=== PATIENT | female | born 1970 | race Caucasian/White ===

== ENCOUNTER 2017-06-25 20:21 | Inpatient (IN) | payer BC ==
[2017-06-25 21:25] LABS: Basophils % (A) 0 %; Eosinophils # (A) 0.1 k/uL (0-0.7); Eosinophils % (A) 1 %; HGB 15.7 gm/dL (11.4-16.0); Lymphocytes # (A) 1.1 k/uL (1.0-4.8); Lymphocytes % (A) 11 %; MCH 33.8 pg (25.0-35.0); MCHC 34.8 g/dL (31.0-37.0); MCV 97.1 fL (80.0-100.0); Mean Platelet Volume 7.1; Monocytes # (A) 0.4 k/uL (0-1.0); Monocytes % (A) 4 %; Neutrophils # (A) 8.4 k/uL (1.3-7.7); Neutrophils % (A) 83 %; Platelet Count 259 k/uL (150-450); RBC 4.63 m/uL (3.80-5.40); RDW 13.2 % (11.5-15.5); WBC 10.1 k/uL (3.8-10.6)
[2017-06-25 21:52] LABS: ALT 121 U/L (9-52); AST 72 U/L (14-36); Albumin 4.5 g/dL (3.5-5.0); Alkaline Phosphatase 88 U/L (38-126); Amylase 52 U/L (30-110); Anion Gap 17 mmol/L; Blood Urea Nitrogen 12 mg/dL (7-17); Carbon Dioxide 21 mmol/L (22-30); Chloride 100 mmol/L (98-107); Glucose 93 mg/dL (74-99); Lipase 83 U/L (23-300); Potassium 3.6 mmol/L (3.5-5.1); Sodium 138 mmol/L (137-145); Total Bilirubin 0.7 mg/dL (0.2-1.3); Total Protein 7.3 g/dL (6.3-8.2)
[2017-06-25] MEDS ORDERED: SODIUM CHLORIDE 0.9% 1,000 ML IV ONE (22:03)
[2017-06-25] MEDS ORDERED: ONDANSETRON 4 MG/2 ML VIAL IVP STA (22:03)
[2017-06-25] MEDS ORDERED: KETOROLAC 30 MG/ML 1 ML VIAL IVP STA (22:03)
--- NOTE | 2017-06-25 22:06 | ED ---
Abdominal Pain HPI <Ezra Linton - Last Filed: 06/26/17 01:46> - General Source: patient, RN notes reviewed Mode of arrival: wheelchair Limitations: no limitations <Clif Alas - Last Filed: 06/26/17 01:51> - General Chief Complaint: Abdominal Pain Stated Complaint: poss gallbladder problem Time Seen by Provider: 06/25/17 21:45 - History of Present Illness Initial Comments: This a 47-year-old female presents emergency Department chief complaint of right upper quadrant abdominal pain. Patient states symptoms started around 4 this afternoon. Patient states she's been vomiting cannot keep anything down. Denies any diarrhea, constipation. Patient denies any dysuria, hematuria or any chance . Patient had no prior abdominal surgeries other concerns section. Patient denies any known fever, chills. She states that she has color dysfunction has not had a recent ultrasound. Denies chest pain, shortness breath, headache, dizziness. (Clif Alas) - Related Data Home Medications Medication Instructions Recorded Confirmed Triamcinolone Acetonide [Nasacort 16.5 gm NASAL DAILY 10/24/13 10/24/13 Aq] Allergies Allergy/AdvReac Type Severity Reaction Status Date / Time codeine Allergy Unknown Verified 06/25/17 20:29 Review of Systems ROS Other: All systems not noted in ROS Statement are negative. <Ezra Linton - Last Filed: 06/26/17 01:46> ROS Other: All systems not noted in ROS Statement are negative. <Clif Alas - Last Filed: 06/26/17 01:51> ROS Statement: Those systems with pertinent positive or pertinent negative responses have been documented in the HPI. Past Medical History Additional Past Medical History / Comment(s): seasonal allergies History of Any Multi-Drug Resistant Organisms: None Reported Past Surgical History: No Surgical Hx Reported Additional Past Surgical History / Comment(s): 1994. Past Anesthesia/Blood Transfusion Reactions: No Reported Reaction Past Psychological History: No Psychological Hx Reported Smoking Status: Current every day smoker Past Alcohol Use History: Occasional Past Drug Use History: None Reported - Past Family History Father Family Medical History: Diabetes Mellitus, Hypertension Additional Family Medical History / Comment(s): father had 5 stents in May,. Mother Family Medical History: Diabetes Mellitus, Hypertension <Clif Alas - Last Filed: 06/26/17 01:51> General Exam Limitations: no limitations General appearance: alert, in no apparent distress Head exam: Present: atraumatic, normocephalic, normal inspection Eye exam: Present: normal appearance, PERRL, EOMI. Absent: scleral icterus, conjunctival injection, periorbital swelling ENT exam: Present: normal exam, normal oropharynx, mucous membranes moist Neck exam: Present: normal inspection. Absent: tenderness, meningismus, lymphadenopathy Respiratory exam: Present: normal lung sounds bilaterally. Absent: respiratory distress, wheezes, rales, rhonchi, stridor Cardiovascular Exam: Present: regular rate, normal rhythm, normal heart sounds. Absent: systolic murmur, diastolic murmur, rubs, gallop, clicks GI/Abdominal exam: Present: soft, tenderness (Moderate right upper quadrant tenderness), normal bowel sounds. Absent: distended, guarding, rebound, rigid Back exam: Absent: CVA tenderness (R), CVA tenderness (L) Skin exam: Present: warm, dry, intact, normal color. Absent: rash <Clif Alas - Last Filed: 06/26/17 01:51> Vital Signs 06/25/17 06/26/17 20:26 00:54 Temperature 98.5 F Pulse Rate 73 99 Respiratory 20 18 Rate Blood Pressure 187/95 157/82 O2 Sat by Pulse 100 100 Oximetry Medical Decision Making - Lab Data Result diagrams: 06/25/17 21:00 06/25/17 21:00 <Ezra Linton - Last Filed: 06/26/17 01:46> - Lab Data Result diagrams: 06/25/17 21:00 06/25/17 21:00 <Clif Alas - Last Filed: 06/26/17 01:51> - Medical Decision Making Patient reevaluated by myself, Dr. Linton. Patient has mild discomfort at this time. There is mild tenderness right upper quadrant. Labs and ultrasound report reviewed. Patient updated on results and plan. Case was also discussed in detail with Dr. Joseph, who will admit for surgical call. (Ezra Linton) Patient be admitted for acute cholecystitis. Patient was hydrated given broad- spectrum antibiotics at this time. (Clif Alas) - Lab Data Lab Results 04/10/18 04/10/18 04/10/18 Range/Units 21:00 21:00 21:00 WBC 10.1 (3.8-10.6) k/uL RBC 4.63 (3.80-5.40) m/uL Hgb 15.7 (11.4-16.0) gm/dL Hct 45.0 (34.0-46.0) % MCV 97.1 (80.0-100.0) fL MCH 33.8 (25.0-35.0) pg MCHC 34.8 (31.0-37.0) g/dL RDW 13.2 (11.5-15.5) % Plt Count 259 (150-450) k/uL Neutrophils % 83 % Lymphocytes % 11 % Monocytes % 4 % Eosinophils % 1 % Basophils % 0 % Neutrophils # 8.4 H (1.3-7.7) k/uL Lymphocytes # 1.1 (1.0-4.8) k/uL Monocytes # 0.4 (0-1.0) k/uL Eosinophils # 0.1 (0-0.7) k/uL Basophils # 0.0 (0-0.2) k/uL Sodium 138 (137-145) mmol/L Potassium 3.6 (3.5-5.1) mmol/L Chloride 100 (98-107) mmol/L Carbon Dioxide 21 L (22-30) mmol/L Anion Gap 17 mmol/L BUN 12 (7-17) mg/dL Creatinine 0.60 (0.52-1.04) mg/dL Est GFR (CKD-EPI)AfAm >90 (>60 ml/min/1.73 sqM) Est GFR (CKD-EPI)NonAf >90 (>60 ml/min/1.73 sqM) Glucose 93 (74-99) mg/dL Plasma Lactic Acid Loco 1.7 (0.7-2.0) mmol/L Calcium 10.0 (8.4-10.2) mg/dL Total Bilirubin 0.7 (0.2-1.3) mg/dL AST 72 H (14-36) U/L ALT 121 H (9-52) U/L Alkaline Phosphatase 88 (38-126) U/L Total Protein 7.3 (6.3-8.2) g/dL Albumin 4.5 (3.5-5.0) g/dL Amylase 52 (30-110) U/L Lipase 83 (23-300) U/L Urine Color Urine Appearance (Clear) Urine pH (5.0-8.0) Ur Specific [place] (1.001-1.035) Urine Protein (Negative) Urine Glucose (UA) (Negative) Urine Ketones (Negative) Urine Blood (Negative) Urine Nitrite (Negative) Urine Bilirubin (Negative) Urine Urobilinogen (<2.0) mg/dL Ur Leukocyte Esterase (Negative) Urine RBC (0-5) /hpf Urine WBC (0-5) /hpf Ur Squamous Epith Cells (0-4) /hpf Urine Mucus (None) /hpf Urine HCG, Qual (Not Detectd) 06/25/17 06/25/17 Range/Units 23:35 23:35 WBC (3.8-10.6) k/uL RBC (3.80-5.40) m/uL Hgb (11.4-16.0) gm/dL Hct (34.0-46.0) % MCV (80.0-100.0) fL MCH (25.0-35.0) pg MCHC (31.0-37.0) g/dL RDW (11.5-15.5) % Plt Count (150-450) k/uL Neutrophils % % Lymphocytes % % Monocytes % % Eosinophils % % Basophils % % Neutrophils # (1.3-7.7) k/uL Lymphocytes # (1.0-4.8) k/uL Monocytes # (0-1.0) k/uL Eosinophils # (0-0.7) k/uL Basophils # (0-0.2) k/uL Sodium (137-145) mmol/L Potassium (3.5-5.1) mmol/L Chloride (98-107) mmol/L Carbon Dioxide (22-30) mmol/L Anion Gap mmol/L BUN (7-17) mg/dL Creatinine (0.52-1.04) mg/dL Est GFR (CKD-EPI)AfAm (>60 ml/min/1.73 sqM) Est GFR (CKD-EPI)NonAf (>60 ml/min/1.73 sqM) Glucose (74-99) mg/dL Plasma Lactic Acid Loco (0.7-2.0) mmol/L Calcium (8.4-10.2) mg/dL Total Bilirubin (0.2-1.3) mg/dL AST (14-36) U/L ALT (9-52) U/L Alkaline Phosphatase (38-126) U/L Total Protein (6.3-8.2) g/dL Albumin (3.5-5.0) g/dL Amylase (30-110) U/L Lipase (23-300) U/L Urine Color Yellow Urine Appearance Clear (Clear) Urine pH 5.5 (5.0-8.0) Ur Specific [place] 1.024 (1.001-1.035) Urine Protein 1+ H (Negative) Urine Glucose (UA) Negative (Negative) Urine Ketones 4+ H (Negative) Urine Blood Negative (Negative) Urine Nitrite Negative (Negative) Urine Bilirubin Negative (Negative) Urine Urobilinogen <2.0 (<2.0) mg/dL Ur Leukocyte Esterase Negative (Negative) Urine RBC 2 (0-5) /hpf Urine WBC 1 (0-5) /hpf Ur Squamous Epith Cells 2 (0-4) /hpf Urine Mucus Rare H (None) /hpf Urine HCG, Qual Not Detected (Not Detectd) Disposition <Ezra Linton - Last Filed: 06/26/17 01:46> <Clif Alas - Last Filed: 06/26/17 01:51> Clinical Impression: Acute cholecystitis Disposition: ADMITTED IP TO THIS HOSP Condition: Stable Referrals: Jose Bangura MD [Primary Care Provider] - 1-2 days
--- NOTE | 2017-06-25 22:13 | XR ---
EXAMINATION TYPE: XR KUB DATE OF EXAM: 06/25/2017 COMPARISON: NONE HISTORY: Epigastric pain TECHNIQUE: 2 views FINDINGS: There is no sign of intestinal obstruction or pneumoperitoneum. Fecal pattern is normal. Loree ng bases are clear. There are no pathologic calcifications over the kidneys. There is some amorphous calcification in the right paraspinal region at the L3-L4 level the could relate to degenerative phen omenon in the spine. IMPRESSION: Nonacute abdomen.
--- NOTE | 2017-06-25 23:10 | US ---
EXAMINATION TYPE: US abdomen limited DATE OF EXAM: 06/25/2017 COMPARISON: NONE CLINICAL HISTORY: Pain. RUQ pain nausea and vomiting. EXAM MEASUREMENTS: Liver Length: 15.6 cm Gallbladder Wall: 0.5 cm CBD: 0.6 cm Right Kidney: 9.7 x 4.3 x 3.9 cm Pancreas: Obscured by bowel gas Liver: wnl Gallbladder: Multiple gallstones visualized with wall thickening. Evidence for sonographic Hyatt's sign: Yes CBD: upper limits Right Kidney: No hydronephrosis or masses seen. Appears to have a dual collecting system. Multiple gallstones seen with wall thickening. IMPRESSION: Gallstones and gallbladder wall thickening suggestive of acute and chronic cholecystitis. No dilated ducts.
[2017-06-25 23:42] LABS: Appearance,Urine Clear (Clear); Bilirubin,Urine Negative (Negative); Blood,Urine Negative (Negative); Color,Urine Yellow; Glucose,Urine (UA) Negative (Negative); Ketones,Urine 4+ (Negative); Leukocyte Esterase,Urine Negative (Negative); Mucus,Urine Rare /hpf; Nitrite,Urine Negative (Negative); PH, Urine 5.5 (5.0-8.0); Protein,Urine 1+ (Negative); RBC,Urine 2 /hpf (0-5); Specific Gravity,Urine 1.024 (1.001-1.035); Squamous Epithelial Cell,Urine 2 /hpf (0-4); Urobilinogen,Urine <2.0 mg/dL (<2.0); WBC,Urine 1 /hpf (0-5)
[2017-06-26] MEDS ORDERED: METOCLOPRAMIDE 5 MG/ML 2 ML VIAL IVP STA (00:08)
[2017-06-26] MEDS ORDERED: PIPERACILLIN-TAZOBACTAM 3.375 GM in DEXTROSE/WATER 1 50ML.BAG IVPB STA (00:38)
[2017-06-26] MEDS ORDERED: SODIUM CHLORIDE 0.9% 1,000 ML IV ONE (01:50)
[2017-06-26] MEDS ORDERED: HYDROcodone/APAP 5-325MG 1 EACH TAB PO PRN ×2 (01:51→17:57)
[2017-06-26] MEDS ORDERED: ONDANSETRON 4 MG/2 ML VIAL IVP PRN (01:51)
[2017-06-26] MEDS ORDERED: MEPERIDINE 50 MG/ML SYRINGE IVP PRN (01:59)
[2017-06-26] MEDS: SODIUM CHLORIDE 0.9% 1,000 ML IV SCH ×2 (02:15→08:30)
[2017-06-26 05:03] VITALS: BMI 28.1
[2017-06-26] MEDS ORDERED: MORPHINE SULFATE 4MG/4ML SYRG IVP PRN ×2 (07:57→17:59)
[2017-06-26] MEDS: MORPHINE SULFATE 4MG/4ML SYRG IVP PRN ×3 (10:52→21:30)
[2017-06-26] MEDS: PIPERACILLIN-TAZOBACTAM 3.375 GM in DEXTROSE/WATER 1 50ML.BAG IVPB SCH ×2 (10:53→15:34)
[2017-06-26] MEDS: ONDANSETRON 4 MG/2 ML VIAL IVP PRN ×2 (10:53→14:48)
--- NOTE | 2017-06-26 10:59 | P.GSHP ---
History of Present Illness H&P Date: 06/26/17 47-year-old female presented to the emergency room with a chief complaint of developing a sudden onset of right upper quadrant abdominal pain. Reported that it started around 3:00 in the afternoon felt a nausea sensation started vomiting could not keep anything down. Patient stated the pain continued to persist came into the emergency room to be evaluated. Patient reports that she has had 2 prior episodes that were similar but they resolved on their own. Patient reports being on a diet low carbohydrate and fat for greater than a year for weight loss. Patient has no prior recent abdominal surgeries. C- section in 1994. No significant past medical history. Current every day smoker. Positive family history of gallbladder disease mother father. Ultrasound of the abdomen to evaluate right upper quadrant pain showed multiple gallstones with wall thickening. Suggesting acute on chronic cholecystitis no dilated ducts. Labs were reviewed total bili 0.7, AST 72 ALT 121 white count 10.1 electrolytes reviewed within normal limits temp this morning is 100.7 heart rate in the 100s patient continues to report having right upper quadrant pain with a nausea sensation - Review of Systems Comment: Essentially unremarkable except as mentioned in the present illness Past Medical History Additional Past Medical History / Comment(s): seasonal allergies History of Any Multi-Drug Resistant Organisms: None Reported Past Surgical History: No Surgical Hx Reported Additional Past Surgical History / Comment(s): 1994. Past Anesthesia/Blood Transfusion Reactions: No Reported Reaction Past Psychological History: No Psychological Hx Reported Smoking Status: Current every day smoker Past Alcohol Use History: Occasional Past Drug Use History: None Reported - Past Family History Father Family Medical History: Diabetes Mellitus, Hypertension Additional Family Medical History / Comment(s): father had 5 stents in May,. Mother Family Medical History: Diabetes Mellitus, Hypertension Medications and Allergies Home Medications Medication Instructions Recorded Confirmed Type ALPRAZolam [Xanax] 0.125 - 0.25 mg PO DAILY PRN 06/26/17 06/26/17 History Fexofenadine/Pseudoephedrine 1 tab PO BID 06/26/17 06/26/17 History [Veronica-D 12 Hour Tablet] Allergies Allergy/AdvReac Type Severity Reaction Status Date / Time codeine Allergy Unknown Verified 06/26/17 08:17 Surgical - Exam Vital Signs Temp Pulse Resp BP Pulse Ox 98.5 F 73 20 187/95 100 06/25/17 20:26 06/25/17 20:26 06/25/17 20:26 06/25/17 20:26 06/25/17 20:26 GENERAL APPEARANCE: 47-year-old female patient awake alert resting in bed reports having right upper quadrant pain pain medication reduces the discomfort but does not completely alleviated. VITAL SIGNS: Reviewed HEENT: Head is normocephalic and atraumatic. Pupils are equal and reactive. The nares are patent. Oropharynx is clear without lesions. NECK: Supple without lymphadenopathy. Traches midline. HEART: S1, S2. Regular rate and rhythm. Denying chest pain no murmur LUNGS: No crackles or wheezes are heard. Adequate air movement bilaterally ABDOMEN: Soft, mild tenderness right upper quadrant nondistended with good bowel sounds. No peritoneal signs. No palpable organomegaly or masses. Reports a nausea sensation no emesis no difficulty in urinating no frequent stooling EXTREMITIES: Normal skin color and turgor. No cyanosis, rash, ulceration, clubbing or edema. Radial pedal pulses are 2/4 bilaterally. NEUROLOGICAL: No focal deficits. Strength and sensation are grossly intact. Results - Labs 06/25/17 21:00 06/25/17 21:00 Abnormal Lab Results - Last 24 Hours (Table) 06/25/17 06/25/17 06/25/17 Range/Units 21:00 21:00 23:35 Neutrophils # 8.4 H (1.3-7.7) k/uL Carbon Dioxide 21 L (22-30) mmol/L AST 72 H (14-36) U/L ALT 121 H (9-52) U/L Urine Protein 1+ H (Negative) Urine Ketones 4+ H (Negative) Urine Mucus Rare H (None) /hpf Diabetes panel 06/25/17 Range/Units 21:00 Sodium 138 (137-145) mmol/L Potassium 3.6 (3.5-5.1) mmol/L Chloride 100 (98-107) mmol/L Carbon Dioxide 21 L (22-30) mmol/L BUN 12 (7-17) mg/dL Creatinine 0.60 (0.52-1.04) mg/dL Glucose 93 (74-99) mg/dL Calcium 10.0 (8.4-10.2) mg/dL AST 72 H (14-36) U/L ALT 121 H (9-52) U/L Alkaline Phosphatase 88 (38-126) U/L Total Protein 7.3 (6.3-8.2) g/dL Albumin 4.5 (3.5-5.0) g/dL Calcium panel 06/25/17 Range/Units 21:00 Calcium 10.0 (8.4-10.2) mg/dL Albumin 4.5 (3.5-5.0) g/dL Pituitary panel 06/25/17 Range/Units 21:00 Sodium 138 (137-145) mmol/L Potassium 3.6 (3.5-5.1) mmol/L Chloride 100 (98-107) mmol/L Carbon Dioxide 21 L (22-30) mmol/L BUN 12 (7-17) mg/dL Creatinine 0.60 (0.52-1.04) mg/dL Glucose 93 (74-99) mg/dL Calcium 10.0 (8.4-10.2) mg/dL Adrenal panel 06/25/17 Range/Units 21:00 Sodium 138 (137-145) mmol/L Potassium 3.6 (3.5-5.1) mmol/L Chloride 100 (98-107) mmol/L Carbon Dioxide 21 L (22-30) mmol/L BUN 12 (7-17) mg/dL Creatinine 0.60 (0.52-1.04) mg/dL Glucose 93 (74-99) mg/dL Calcium 10.0 (8.4-10.2) mg/dL Total Bilirubin 0.7 (0.2-1.3) mg/dL AST 72 H (14-36) U/L ALT 121 H (9-52) U/L Alkaline Phosphatase 88 (38-126) U/L Total Protein 7.3 (6.3-8.2) g/dL Albumin 4.5 (3.5-5.0) g/dL Assessment and Plan Assessment: Impression Present on admission right upper quadrant pain with nausea vomiting suspect due to acute cholecystitis Ultrasound of the abdomen report indicates multiple gallstones with wall thickening no dilated ducts suggestive of acute on chronic cholecystitis Current every day smoker Febrile Hypertension uncontrolled Plan Nothing by mouth scheduled for a lap cholecystectomy today IV fluid as ordered IV Zosyn as ordered Pain control DVT and GI prophylaxis The above impression and plan of care have been discussed and directed by signing physician. Jyoce Blair nurse practitioner acting as scribe for signing physician.
[2017-06-26] MEDS: HEPARIN SODIUM,PORCINE 5,000 UNIT/ML 1 ML VIAL SQ SCH ×2 (11:09→15:36)
[2017-06-26] MEDS ORDERED: IV FLUID CONTINUATION 1,000 ML IV ONE (15:44)
[2017-06-26] MEDS ORDERED: BUPIVACAINE (PF) 0.25% 30 ML VIAL SQ ONE (16:54)
[2017-06-26] MEDS ORDERED: PROPOFOL 10 MG/ML 20 ML VIAL IV ONE (17:04)
[2017-06-26] MEDS ORDERED: MORPHINE SULFATE 10 MG/ML SYRINGE ONE (17:04)
[2017-06-26] MEDS ORDERED: MIDAZOLAM 2 MG/2 ML VIAL ONE (17:04)
[2017-06-26] MEDS ORDERED: SUCCINYLCHOLINE CHLORIDE 100 MG/5 ML SYR IV ONE (17:04)
[2017-06-26] MEDS ORDERED: ROCURONIUM BROMIDE 10 MG/ML 10 ML VIAL IV ONE (17:04)
[2017-06-26] MEDS ORDERED: LIDOCAINE 1% INJ 10MG/ML (20 ML MDV) ONE (17:04)
[2017-06-26] MEDS ORDERED: fentaNYL (PF) 50 MCG/ML 2 ML AMP ONE (17:04)
[2017-06-26] MEDS ORDERED: NEOSTIGMINE 1 MG/ML 10 ML VIAL ONE (17:04)
[2017-06-26] MEDS ORDERED: GLYCOPYRROLATE 0.2 MG/ML 2 ML VIAL ONE (17:04)
[2017-06-26] MEDS ORDERED: LACTATED RINGERS 1,000 ML IV ONE ×3 (17:23→18:52)
--- NOTE | 2017-06-26 17:56 | P.OP ---
Date of Procedure: 06/26/17 Preoperative Diagnosis: Cholecystitis Postoperative Diagnosis: Cholecystitis Cholelithiasis Procedure(s) Performed: laparoscopic cholecystectomy Anesthesia: CHARLIE Surgeon: Jayme Dillard Estimated Blood Loss (ml): 30 Pathology: other (Gallbladder, gallstones) Condition: stable Disposition: PACU Description of Procedure: The patient was placed on the operating table. The patient received a general endotracheal tube anesthesia. The patients abdomen was prepped and draped in the usual sterile fashion. Through an infraumbilical stab incision, the fascia of the anterior abdominal wall was grasped with a pair of Kochers and then the Veress needle was placed in the peritoneal cavity. Position of the Veress needle was confirmed with positive drop test. The abdomen was then insufflated. After adequate insufflation, the 10 mm trocar was placed in the peritoneal cavity. Following this the laparoscope was placed in the peritoneal cavity. The patient was placed in the head-up, right side up position and then a 5 mm trocar was placed in the right lateral and right subcostal position under direct visualization. A 8 mm trocar was placed in the epigastric position. The gallbladder was visualized. It was grossly edematous and inflamed. There appeared to be some evidence of patchy necrosis. The gallbladder was quite tense and the gallbladder was aspirated prior to grasping it. The gallbladder was grasped in the fundus and infundibulum. Traction on the gallbladder was placed in the lateral and the cephalad positions. The triangle of Calot was visualized.. The cystic duct was bluntly dissected until the union of the cystic duct and common bile duct was seen. The cystic duct was then divided and sealed with the Harmonic scissors. A PDS Endoloop was then placed throughout the cystic duct stump. The cystic artery divided and sealed with the Harmonic scissors. The gallbladder was then removed from the liver bed using Harmonic scissors. The gallbladder was then extracted through the epigastric port site. Operative field was checked for any bleeding spots and Harmonic scissors was used to coagulate the liver bed. The abdomen was irrigated. The trocars were removed. The skin was closed using interrupted 3- 0 Vicryl suture. Dermabond dressing were applied. The patient tolerated the procedure well.
[2017-06-26] MEDS ORDERED: traMADol 50 MG TAB PO PRN (17:57)
[2017-06-26] MEDS ORDERED: ACETAMINOPHEN TAB 325 MG TAB PO PRN (17:57)
[2017-06-26] MEDS ORDERED: NALOXONE 0.4 MG/ML 1 ML VIAL IV PRN (17:57)
[2017-06-26] MEDS: KETOROLAC 30 MG/ML 1 ML VIAL IVP SCH (19:23)
[2017-06-26] MEDS ORDERED: MORPHINE SULF 5MG/10ML VL IVP STA (21:24)
[2017-06-26] MEDS: DOCUSATE 100 MG CAP PO SCH (21:25)
[2017-06-26] MEDS: FAMOTIDINE 20 MG/2 ML VIAL IV SCH (21:25)
--- NOTE | 2017-06-26 23:21 | P.CONS ---
History of Present Illness - Reason for Consult Consult date: 06/26/17 Medical management Requesting physician: Jayme Dillard - Chief Complaint Cholecystic pain - History of Present Illness This is a 47-year-old white female who is fairly well known to my practice who complained of sudden onset of right upper quadrant pain. Food is significant for.provocative. The patient states no palliative elements. Even pain medication given to her in the emergency room seemed only minimally helped her. I have been counseled to secondary to medical management. No significant chest pain or shortness of breath. No significant nausea, vomiting or diarrhea is stated. Review of Systems Constitutional: Reports anorexia, Denies fever Eyes: denies blurred vision, denies pain Ears, nose, mouth and throat: Denies headache, Denies sore throat Cardiovascular: Denies chest pain, Denies shortness of breath Gastrointestinal: Reports abdominal pain Genitourinary: Denies dysuria, Denies hematuria Past Medical History Additional Past Medical History / Comment(s): seasonal allergies History of Any Multi-Drug Resistant Organisms: None Reported Past Surgical History: No Surgical Hx Reported Additional Past Surgical History / Comment(s): 1994. Past Anesthesia/Blood Transfusion Reactions: No Reported Reaction Past Psychological History: No Psychological Hx Reported Smoking Status: Current every day smoker Past Alcohol Use History: Occasional Past Drug Use History: None Reported - Past Family History Father Family Medical History: Diabetes Mellitus, Hypertension Additional Family Medical History / Comment(s): father had 5 stents in May,. Mother Family Medical History: Diabetes Mellitus, Hypertension Medications and Allergies Home Medications Medication Instructions Recorded Confirmed Type ALPRAZolam [Xanax] 0.125 - 0.25 mg PO DAILY PRN 06/26/17 06/26/17 History Fexofenadine/Pseudoephedrine 1 tab PO BID 06/26/17 06/26/17 History [Veronica-D 12 Hour Tablet] Allergies Allergy/AdvReac Type Severity Reaction Status Date / Time codeine Allergy Unknown Verified 06/26/17 08:17 Physical Exam Vitals: Vital Signs Temp Pulse Pulse Pulse Resp BP BP 06/26/17 22:02 91 141/89 06/26/17 21:02 89 135/84 06/26/17 20:02 86 153/99 06/26/17 19:32 86 143/86 06/26/17 19:02 83 159/92 06/26/17 19:00 80 16 167/99 06/26/17 18:47 86 165/97 06/26/17 18:45 86 16 175/102 06/26/17 18:32 83 168/99 06/26/17 18:31 86 16 165/100 06/26/17 18:17 97.2 F L 94 88 20 147/102 06/26/17 18:00 109 H 16 170/93 06/26/17 17:58 97.8 F 107 H 12 173/93 06/26/17 15:38 98.3 F 95 16 167/88 06/26/17 12:12 98.6 F 95 20 167/94 06/26/17 08:34 100.7 F H 104 H 17 169/102 06/26/17 07:48 100.7 F H 104 H 18 169/102 06/26/17 07:00 100.7 F H 104 H 18 169/102 06/26/17 04:54 98.5 F 97 16 167/95 06/26/17 03:01 99.1 F 112 H 18 165/94 06/26/17 02:16 102 H 16 165/84 06/26/17 00:54 99 18 157/82 Pulse Ox 06/26/17 22:02 94 L 06/26/17 21:02 93 L 06/26/17 20:02 99 06/26/17 19:32 95 06/26/17 19:02 96 06/26/17 19:00 97 06/26/17 18:47 99 06/26/17 18:45 97 06/26/17 18:32 100 06/26/17 18:31 100 06/26/17 18:17 99 06/26/17 18:00 100 06/26/17 17:58 100 06/26/17 15:38 95 06/26/17 12:12 94 L 06/26/17 08:34 94 L 06/26/17 07:48 94 L 06/26/17 07:00 94 L 06/26/17 04:54 99 06/26/17 03:01 100 06/26/17 02:16 100 06/26/17 00:54 100 Intake and Output 04/11/18 04/11/18 04/12/18 14:59 22:59 06:59 Intake Total 2890 Output Total 0 375 Balance 0 2515 Intake: IV 1250 Oral 1640 Output: Urine 350 Stool 0 Estimated Blood Loss 25 Other: # Voids 2 1 - Constitutional General appearance: no acute distress - EENT Eyes: EOMI - Neck Neck: no lymphadenopathy - Respiratory Respiratory: bilateral: CTA - Cardiovascular Rhythm: regular Heart sounds: normal: S1, S2 - Gastrointestinal General gastrointestinal: tenderness Localized gastrointestinal: tender: RUQ - Integumentary Integumentary: no cellulitis - Neurologic Neurologic: CNII-XII intact Results CBC & Chem 7: 06/25/17 21:00 06/25/17 21:00 Labs: Abnormal Lab Results - Last 24 Hours (Table) 06/25/17 Range/Units 23:35 Urine Protein 1+ H (Negative) Urine Ketones 4+ H (Negative) Urine Mucus Rare H (None) /hpf Assessment and Plan (1) Acute cholecystitis Current Visit: Yes Status: Acute Code(s): K81.0 - ACUTE CHOLECYSTITIS SNOMED Code(s): 66841065 Plan: We will go and try toControl pain appropriate lead. The patient is a full code. Reconcile medications. We will continue to follow postoperatively with general surgery. Time with Patient: Less than 30
[2017-06-27] MEDS: SODIUM CHLORIDE 0.9% 1,000 ML IV SCH (00:02)
[2017-06-27] MEDS: PIPERACILLIN-TAZOBACTAM 3.375 GM in DEXTROSE/WATER 1 50ML.BAG IVPB SCH ×2 (00:08→10:53)
[2017-06-27] MEDS: KETOROLAC 30 MG/ML 1 ML VIAL IVP SCH ×3 (00:08→12:04)
[2017-06-27] MEDS: HEPARIN SODIUM,PORCINE 5,000 UNIT/ML 1 ML VIAL SQ SCH (00:09)
[2017-06-27 00:23] VITALS: RESP 18
[2017-06-27] MEDS: MORPHINE SULFATE 4MG/4ML SYRG IVP PRN (04:37)
[2017-06-27 06:25] LABS: Basophils % (A) 0 %; Eosinophils # (A) 0.2 k/uL (0-0.7); Eosinophils % (A) 2 %; HCT 38.5 % (34.0-46.0); HGB 13.6 gm/dL (11.4-16.0); Lymphocytes # (A) 1.5 k/uL (1.0-4.8); Lymphocytes % (A) 18 %; MCHC 35.4 g/dL (31.0-37.0); MCV 96.2 fL (80.0-100.0); Mean Platelet Volume 6.9; Monocytes # (A) 0.5 k/uL (0-1.0); Monocytes % (A) 5 %; Neutrophils # (A) 6.2 k/uL (1.3-7.7); Neutrophils % (A) 74 %; Platelet Count 211 k/uL (150-450); RBC 4.01 m/uL (3.80-5.40); RDW 13.4 % (11.5-15.5); WBC 8.5 k/uL (3.8-10.6)
[2017-06-27 06:35] LABS: ALT 72 U/L (9-52); AST 47 U/L (14-36); Albumin 2.9 g/dL (3.5-5.0); Alkaline Phosphatase 57 U/L (38-126); Anion Gap 7 mmol/L; Blood Urea Nitrogen 3 mg/dL (7-17); Calcium 8.4 mg/dL (8.4-10.2); Carbon Dioxide 28 mmol/L (22-30); Chloride 101 mmol/L (98-107); Glucose 92 mg/dL (74-99); Potassium 3.4 mmol/L (3.5-5.1); Sodium 136 mmol/L (137-145); Total Bilirubin 0.7 mg/dL (0.2-1.3); Total Protein 5.2 g/dL (6.3-8.2)
--- NOTE | 2017-06-27 07:30 | P.PN ---
Subjective Progress Note Date: 06/27/17 Principal diagnosis: Continuing care This is a continue progress on a 47-year-old white female who is postop day 1 cholecystectomy. The patient is actually much more comfortable than yesterday. Ice does help her pain. She is tolerating diet at this point. No voiding symptoms are stated. Objective - Vital Signs Vital signs: Vital Signs Temp 97.2 F L 06/26/17 18:17 Pulse 91 06/26/17 22:02 Resp 18 06/27/17 00:00 BP 141/89 06/26/17 22:02 Pulse Ox 96 06/27/17 00:00 Intake & Output 06/26/17 06/27/17 06/27/17 18:59 06:59 18:59 Intake Total 1730 1740 Output Total 275 750 Balance 1455 990 Intake: IV 1250 Oral 480 1740 Output: Urine 250 750 Stool 0 Estimated Blood Loss 25 Other: # Voids 1 - Constitutional General appearance: Present: average body habitus - EENT Eyes: Absent: abnormal pupil - Respiratory Respiratory: bilateral: CTA - Cardiovascular Rhythm: regular Heart sounds: normal: S1, S2 Abnormal Heart Sounds: Absent: S3 Gallop - Gastrointestinal General gastrointestinal: Present: soft. Absent: tenderness - Neurologic Neurologic: Present: CNII-XII intact. Absent: focal deficits - Labs CBC & Chem 7: 06/27/17 06:13 06/27/17 06:13 Labs: Abnormal Lab Results - Last 24 Hours (Table) 06/27/17 Range/Units 06:13 Sodium 136 L (137-145) mmol/L Potassium 3.4 L (3.5-5.1) mmol/L BUN 3 L (7-17) mg/dL Creatinine 0.50 L (0.52-1.04) mg/dL AST 47 H (14-36) U/L ALT 72 H (9-52) U/L Total Protein 5.2 L (6.3-8.2) g/dL Albumin 2.9 L (3.5-5.0) g/dL Assessment and Plan (1) Acute cholecystitis Current Visit: Yes Status: Acute Code(s): K81.0 - ACUTE CHOLECYSTITIS SNOMED Code(s): 59142571 Plan: Continue current regimen of treatment. Advance diet and pain control per surgery. Anticipate discharge in the next 24 hours.
[2017-06-27 08:49] VITALS: TEMP 98.5
[2017-06-27] MEDS ORDERED: ENOXAPARIN 40 MG/0.4 ML SYRINGE SQ SCH (09:00)
[2017-06-27] MEDS ORDERED: PANTOPRAZOLE 40 MG/10 ML VIAL IV SCH (09:00)
[2017-06-27] MEDS: DOCUSATE 100 MG CAP PO SCH (09:19)
[2017-06-27] MEDS ORDERED: LISINOPRIL 10 MG TAB PO STA (10:42)
[2017-06-27] MEDS: FAMOTIDINE 20 MG/2 ML VIAL IV SCH (10:54)
[2017-06-27] MEDS: POTASSIUM CHLORIDE ER 20 MEQ TAB.ER PO SCH ×2 (12:04→14:13)
[2017-06-27 12:06] VITALS: BP 160/93; PULSE 79
--- NOTE | 2017-06-27 13:26 | P.DS ---
Providers Date of admission: 06/26/17 01:47 Expected date of discharge: 06/27/17 Attending physician: Jayme Bazan Consults: 06/26/17 17:56 Consult Physician Routine Consulting Provider: Jose Bangura Consult Reason/Comments: Medical management Do you want consulting provider notified?: Yes Primary care physician: Jose Bangura Hospital Course: 47-year-old presented to the emergency room with a chief complaint of developing a sudden onset of right upper quadrant abdominal pain. Patient stated she felt nauseated did vomit could not keep fluids down. The pain continued to persist came into the emergency room to be evaluated. Patient does give a history of having 2 similar episodes this year but they went away on their own. Patient also states that she's been on a low-carb diet high-fat. For weight loss. There's been no prior abdominal surgeries. Seen in the emergency room ultrasound showed multiple gallstones wall thickening suggesting acute on chronic cholecystitis no dilated ducts. Patient elected to undergo a laparoscopic cholecystectomy for acute cholecystitis cholelithiasis done on June 26 postprocedure patient systolic blood pressure was noted to be elevated 160/93- 153/90 heart rate in the 70s afebrile. Patient's primary care provider was aware. patient to follow-up in the office and would monitor blood pressure at that time the decision would be made if antihypertensive meds needed to be initiated. The plan was discussed with the patient receptive to the plan. Subsequently the patient was felt to be hemodynamically stable and appropriate proceed with a discharge to home Impression Present on admission right upper quadrant pain with nausea vomiting suspect due to acute cholecystitis Ultrasound of the abdomen report indicates multiple gallstones with wall thickening no dilated ducts suggestive of acute on chronic cholecystitis Current every day smoker Febrile suspect due to cholecystitis resolved Hypertension uncontrolled Laparoscopic cholecystectomy for acute cholelithiasis cholecystitis done on May 26 Electrolyte abnormality hypokalemia corrected resolved The above impression and plan of care have been discussed and directed by signing physician. Joyce Pinto nurse practitioner acting as scribe for signing physician. Patient Condition at Discharge: Stable Plan - Discharge Summary Discharge Rx Participant: No New Discharge Prescriptions: New HYDROcodone/APAP 7.5-325MG [[place] 7.5-325] 1 tab PO Q6HR PRN #15 tab PRN Reason: Mild Discomfort Continue Fexofenadine/Pseudoephedrine [Veronica-D 12 Hour Tablet] 1 tab PO BID ALPRAZolam [Xanax] 0.125 - 0.25 mg PO DAILY PRN PRN Reason: Anxiety Discharge Medication List ALPRAZolam [Xanax] 0.125 - 0.25 mg PO DAILY PRN 06/26/17 [History] Fexofenadine/Pseudoephedrine [Veronica-D 12 Hour Tablet] 1 tab PO BID 06/26/17 [ History] HYDROcodone/APAP 7.5-325MG [[place] 7.5-325] 1 tab PO Q6HR PRN #15 tab 06/27/17 [ Rx] Follow up Appointment(s)/Referral(s): Jose Bangura MD [Primary Care Provider] - 1-2 days Jayme Bazan MD [STAFF PHYSICIAN] - 1 Week Activity/Diet/Wound Care/Special Instructions: No tub bath for six weeks. Shower daily. No lifting over 10 pounds for the next 6 weeks. Avoid constipation use [id number] stool softeners if needed May use ice packs to surgical site. No driving while taking narcotic for pain. May return to work after seen in the follow-up visit with Dr. bazan Discharge Disposition: HOME SELF-CARE
[2017-06-27] MEDS ORDERED: FAMOTIDINE 20 MG TAB PO SCH (21:00)
[2017-06-28] MEDS ORDERED: PANTOPRAZOLE 40 MG TABLET PO SCH (07:30)
== END 2017-06-27 14:53 | disposition home or self-care (01) | DRG 419 ==
LOC: EC 20:21 → 6PED 06-26 01:47
PROVIDERS: ADMIT Surgery; ATTEND Surgery
PROC: 0FT44ZZ Resection of Gallbladder, Percutaneous Endoscopic Approach (ICD-10-PCS; principal; 2017-06-26 08:35)
DX: K80.12 Calculus of gallbladder with acute and chronic cholecystitis without obstruction (principal); E87.6 Hypokalemia; F17.200 Nicotine dependence, unspecified, uncomplicated; I10 Essential (primary) hypertension; J30.9 Allergic rhinitis, unspecified; Z79.899 Other long term (current) drug therapy; Z82.49 Family history of ischemic heart disease and other diseases of the circulatory system; Z83.3 Family history of diabetes mellitus; Z88.5 Allergy status to narcotic agent
CPT/HCPCS: 36415; 74018; 76705; 80053; 81001; 81025; 82150; 83605; 83690; 85025; 88304; 96361; 96365; 96366; 96375; 99285